=== PATIENT | female | born 1965 ===

== ENCOUNTER 2017-04-07 12:55 | Day surgery (SDC) | payer OTHER ==
[~2017-04-07 12:55] MED LIST: CATAFLAN PO; FOSAMAX70 MG PO; PROTONIX40 MG PO; ROBAXIN-750750 MG PO; VOLTAREN-XR100 MG PO
== END 2017-04-07 20:15 | disposition home or self-care (01) ==
LOC: CIR.AMB 12:55
DX: M77.11 Lateral epicondylitis, right elbow (principal); S56.511A Strain of other extensor muscle, fascia and tendon at forearm level, right arm, initial encounter